=== PATIENT | male | born 1995 | race Caucasian/White ===

== ENCOUNTER 2025-06-03 12:42 | Inpatient (IN) | payer OTHER ==
[~2025-06-03] VITALS: Ht 170.2 cm; Wt 65.0 kg
[2025-06-03 14:18] LABS: PLATELET COUNT (AUTO) 230 K/uL (150-450); RED BLOOD CELL COUNT(AUTO) 4.88 MIL/uL (4.50-5.90); RED CELL DISTRIBUTION WIDTH 13.3 % (11.5-14.5); WHITE BLOOD COUNT (AUTO) 16.7 K/uL (4.5-11.0)
[2025-06-03] MEDS ORDERED: IOHEXOL 350 MG/ML 100 ML VIAL ONE (14:38)
[2025-06-03 14:45] LABS: CALCIUM, TOTAL 8.9 mg/dL (8.8-10.5); CREATININE 0.96 mg/dL (0.60-1.30); GLOMERULAR FILTR. RATE CALC > 60 mL/min (>60); GLUCOSE,RANDOM 78 mg/dL (70-110); SODIUM SERUM 144 mmol/L (136-145); UREA NITROGEN, BLOOD 16 mg/dL (7-18)
[2025-06-03 15:31] LABS: LACTIC ACID 1.1 mmol/L (0.4-2.0)
[2025-06-03] MEDS: SODIUM CHLORIDE 0.9% 1,000 ML IV ONE ×2 (15:52→23:00)
[2025-06-03] MEDS ORDERED: PERTUSS(ACELL),DIPH,TET/PF 0.5 ML SYRINGE [ADULT] IM. ONE (16:15)
[2025-06-03] MEDS ORDERED: ZOLPIDEM TARTRATE 5 MG TABLET PO PRN (16:30)
[2025-06-03] MEDS ORDERED: ACETAMINOPHEN 325 MG TABLET PO PRN (16:30)
[2025-06-03] MEDS ORDERED: ONDANSETRON HCL 4 MG/2 ML VIAL IVP PRN (16:30)
[2025-06-03] MEDS ORDERED: MAGNESIUM HYDROXIDE SUSPENSION 30 ML UDCUP PO PRN (16:30)
[2025-06-03 18:55] VITALS: O2SAT 100
[2025-06-03 19:38] VITALS: BP 105/70; PULSE 64; RESP 18; TEMP 98.1; O2SAT 100
[2025-06-03] MEDS: DOCUSATE SODIUM 100 MG CAPSULE PO SCH (20:59)
[2025-06-04 02:09] VITALS: BP 123/72; PULSE 67; RESP 15; TEMP 98.6; O2SAT 100
[2025-06-04] MEDS: MORPHINE SULFATE 2 MG/ML SYRINGE IVP PRN (06:30)
[2025-06-04 06:48] LABS: APPEARANCE,URINE CLEAR (CLEAR); GLUCOSE, URINE (UA) NEGATIVE (NEGATIVE); LEUKOCYTE ESTERASE ,URINE NEGATIVE (NEGATIVE); NITRATE,URINE NEGATIVE (NEGATIVE); OCCULT BLOOD,URINE NEGATIVE (NEGATIVE); SPECIFIC GRAVITIY, URINE 1.035 (1.003-1.030)
[2025-06-04 07:19] LABS: PLATELET COUNT (AUTO) 217 K/uL (150-450); RED BLOOD CELL COUNT(AUTO) 4.86 MIL/uL (4.50-5.90); RED CELL DISTRIBUTION WIDTH 13.4 % (11.5-14.5); WHITE BLOOD COUNT (AUTO) 8.2 K/uL (4.5-11.0)
[2025-06-04] MEDS: PANTOPRAZOLE SODIUM 40 MG/VIAL IVP SCH (08:30)
[2025-06-04 08:34] VITALS: BP 131/85; PULSE 94; RESP 14; TEMP 97.7; O2SAT 98
[2025-06-04] MEDS ORDERED: DOCU-385 PO (11:51)
[2025-06-04] MEDS ORDERED: ACET-2247 PO (11:52)
[2025-06-04] MEDS ORDERED: MAGN-169 PO (11:53)
== END 2025-06-04 15:35 | DRG 395 ==
LOC: EMS 12:47 → EDH 16:28 → 6S 18:48
PROVIDERS: ADMIT Internal Medicine; ATTEND Internal Medicine
DX: K40.00 Bilateral inguinal hernia, with obstruction, without gangrene, not specified as recurrent (principal); K29.70 Gastritis, unspecified, without bleeding; F12.90 Cannabis use, unspecified, uncomplicated; F17.210 Nicotine dependence, cigarettes, uncomplicated; Z79.899 Other long term (current) drug therapy
CPT/HCPCS: 74177; 80048; 81003; 83605; 85025; 85610; 85730; 96361; 96374; 99285; J1171; J2270; J2470; 36415-L1; 36415-TC